=== PATIENT | male | born 1970 | race Caucasian/White ===

== ENCOUNTER 2018-08-14 02:36 | Observation (INO) | payer SELFPAY ==
[2018-08-14] MEDS ORDERED: Sodium Chloride 0.9% 1000 ML 1,000 ML IV STA (02:54)
[2018-08-14] MEDS ORDERED: Sodium Chloride 0.9% 1000 ML 1,000 ML ONE ×2 (02:57→03:47)
--- NOTE | 2018-08-14 02:59 | ERPHSYRPT ---
- History of Present Illness Time Seen by Provider: 08/14/18 02:50 Source: patient Exam Limitations: no limitations Patient Subjective Stated Complaint: pt is alert and oriented. pt comes in with c/o fever since about 2100 on 08/13/18. pt denies any other symptoms other than frequent urination. pt denies sore throat, ear ache, n/v/d, no abd pain, no chest pain, no cough, no nasal drainage. pt denies hesitancy, burning or pain with urination. pt skin is pwd. no apparent distress. Triage Nursing Assessment: see above Physician History: 48-year-old white male with history of high blood pressure arrives with complaint of having a fever which has been going on since August 13 He states he's been having a frequent urination he denies any other complaints he does state he's been outside a lot. And it has been hot patient denies chest pain shortness of breath abdominal pain nausea vomiting dysuria or hematuria he states he does not have sore throat. Past medical history includes high blood pressure. Past surgical history is negative. Social history patient states he chews tobacco Timing/Duration: day(s) (one day) Severity: moderate Modifying Factors: Improves With: acetaminophen Associated Symptoms: fever, other (frequent urination), No nausea, No vomiting, No abdominal pain, No shortness of breath, No heartburn, No diaphoresis, No cough, No chills, No chest pain, No headaches, No loss of appetite, No malaise, No rash, No syncope, No seizure, No weakness Allergies/Adverse Reactions: No Known Drug Allergies Allergy (Unverified 08/14/18 02:48) Home Medications: Lisinopril/Hydrochlorothiazide [Lisinopril-Hctz 20-12.5 mg Tab] 1 tablet PO DAILY 08/14/18 [History] Immunizations Up to Date: Yes - Review of Systems Constitutional: Fever, No Chills, No Fatigue, No Lethargy, No Malaise, No Night Sweats, No Weakness, No Weight Loss Eyes: No Symptoms Ears, Nose, & Throat: No Symptoms Respiratory: No Cough, No Dyspnea Cardiac: No Chest Pain, No Edema, No Syncope Abdominal/Gastrointestinal: No Abdominal Pain, No Nausea, No Vomiting, No Diarrhea Genitourinary Symptoms: Frequency, No Dysuria, No Hematuria, No Hesitancy, No Incontinence, No Urgency, No Urinary Retention, No Flank Pain, No Penile Discharge Musculoskeletal: No Back Pain, No Neck Pain Skin: No Rash Neurological: No Dizziness, No Focal Weakness, No Sensory Changes Psychological: No Symptoms Endocrine: No Symptoms All Other Systems: Reviewed and Negative - Past Medical History Pertinent Past Medical History: Yes Neurological History: No Pertinent History ENT History: No Pertinent History Cardiac History: Hypertension Respiratory History: No Pertinent History Endocrine Medical History: No Pertinent History Musculoskeletal History: No Pertinent History GI Medical History: No Pertinent History History: No Pertinent History Psycho-Social History: No Pertinent History - Past Surgical History Past Surgical History: No - Social History Smoking Status: Former smoker Drug Use: none - Nursing Vital Signs Nursing Vital Signs: Initial Vital Signs Temperature 99.2 F 08/14/18 02:42 Pulse Rate 120 H 08/14/18 02:42 Respiratory Rate 18 08/14/18 02:42 Blood Pressure 169/104 08/14/18 02:42 O2 Sat by Pulse Oximetry 95 08/14/18 02:42 Pain Scale Pain Intensity 0 - Physical Exam General Appearance: no apparent distress, alert Eye Exam: PERRL/EOMI, eyes nml inspection Ears, Nose, Throat Exam: TMs normal, pharyngeal erythema, No pharynx normal ( throat mild erythema), No moist mucous membranes, No dry mucous membranes, No TM abnormal (R), No TM abnormal (L) Neck Exam: normal inspection, non-tender, supple, full range of motion Respiratory Exam: normal breath sounds, lungs clear, No respiratory distress Cardiovascular Exam: regular rate/rhythm, normal heart sounds, normal peripheral pulses, capillary refill <2 sec Gastrointestinal/Abdomen Exam: soft, normal bowel sounds, No tenderness, No mass Back Exam: normal inspection, normal range of motion, No CVA tenderness, No vertebral tenderness Extremity Exam: normal inspection, normal range of motion, pelvis stable Neurologic Exam: alert, oriented x 3, cooperative, 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, normal mood/affect, nml cerebellar function, nml station & gait, sensation nml, No motor deficits Skin Exam: normal color, warm, dry, No rash Lymphatic Exam: No adenopathy SpO2 Interpretation: normal (95%) SpO2: 95 - Course Nursing assessment & vital signs reviewed: Yes EKG Interpreted by Me: RATE (112 bpm), Sinus Tach, NORMAL AXIS, Other (EKG: Sinus tachycardia, 112 beats per minute, normal axis, intraventricular conduction delay, no acute ST or T wave changes noted.) Ordered Tests: Active Orders 24 hr Category Date Time Status EKG-ER Only STAT Care 08/14/18 03:34 Active IV Insertion STAT Care 08/14/18 02:54 Active BLOOD CULTURE Stat Lab 08/14/18 03:05 Received CBC W DIFF Stat Lab 08/14/18 02:55 Completed CMP Stat Lab 08/14/18 02:55 Completed Lactic Acid Stat Lab 08/14/18 02:54 Completed UA W/RFX UR CULTURE Stat Lab 08/14/18 03:20 Completed Medication Summary Generic Name Dose Route Start Last Admin Trade Name Freq PRN Reason Stop Dose Admin Sodium Chloride 1,000 mls @ 999 mls/hr 08/14/18 02:54 08/14/18 02:59 Sodium Chloride 0.9% 1000 Ml IV 08/14/18 03:54 999 mls/hr .Q1H1M STA Administration Potassium Chloride 100 mls @ 50 mls/hr 08/14/18 03:45 Potassium Chloride 20 Meq In Water 100ml IV 08/14/18 07:44 Q2H JEOVANY Sodium Chloride 1,000 mls @ 100 mls/hr 08/14/18 03:45 Sodium Chloride 0.9% 1000 Ml IV 09/13/18 03:44 .Q10H JEOVANY Discontinued Medications Generic Name Dose Route Start Last Admin Trade Name Freq PRN Reason Stop Dose Admin Sodium Chloride Confirm 08/14/18 02:57 Sodium Chloride 0.9% 1000 Ml Administered 08/14/18 02:58 Dose 1,000 mls @ ud .ROUTE .STK-MED ONE Lab/Rad Data: Laboratory Result Diagrams 08/14/18 02:55 08/14/18 02:55 Laboratory Results 08/14/18 08/14/18 08/14/18 Range/Units 03:20 03:00 02:55 WBC (4.0-10.5) K/mm3 RBC (4.1-5.6) M/mm3 Hgb (12.5-18.0) gm/dl Hct (42-50) % MCV (78-100) fl MCH (26-32) pg MCHC (32-36) g/dl RDW (11.5-14.0) % Plt Count (150-450) K/mm3 MPV (6-9.5) fl Gran % (36.0-66.0) % Eos # (Auto) (0-0.5) Absolute Lymphs (auto) (1.0-4.6) Absolute Monos (auto) (0.0-1.3) Lymphocytes % (24.0-44.0) % Monocytes % (0.0-12.0) % Eosinophils % (0.00-5.0) % Basophils % (0.0-0.4) % Absolute Granulocytes (1.4-6.9) Basophils # (0-0.4) Sodium 138 (137-145) mmol/L Potassium 2.6 L* (3.5-5.1) mmol/L Chloride 100 (98-107) mmol/L Carbon Dioxide 24 (22-30) mmol/L Anion Gap 16.3 H (5-15) MEQ/L BUN 15 (9-20) mg/dL Creatinine 1.01 (0.66-1.25) mg/dL Estimated GFR > 60.0 ML/MIN Glucose 98 (74-106) mg/dL Lactic Acid (0.4-2.0) Calcium 9.3 (8.4-10.2) mg/dL Total Bilirubin 1.00 (0.2-1.3) mg/dL AST 26 (17-59) U/L ALT 25 (0-50) U/L Alkaline Phosphatase 80 (38-126) U/L Serum Total Protein 8.0 (6.3-8.2) g/dL Albumin 4.6 (3.5-5.0) g/dL Urine Color STRAW (YELLOW) Urine Appearance CLEAR (CLEAR) Urine pH 7.0 (5-6) Ur Specific [place] 1.009 (1.005-1.025) Urine Protein NEGATIVE (Negative) Urine Ketones NEGATIVE (NEGATIVE) Urine Blood SMALL (0-5) Lobo/ul Urine Nitrite NEGATIVE (NEGATIVE) Urine Bilirubin NEGATIVE (NEGATIVE) Urine Urobilinogen NEGATIVE (0-1) mg/dL Ur Leukocyte Esterase NEGATIVE (NEGATIVE) Urine WBC (Auto) NONE (0-5) /HPF Urine RBC (Auto) NONE (0-2) /HPF U Epithel Cells (Auto) NONE (FEW) /HPF Urine Bacteria (Auto) NONE (NEGATIVE) /HPF Urine Culture Reflexed NO (NO) Urine Glucose NEGATIVE (NEGATIVE) mg/dL Group A Strep Antibody NEGATIVE (NEGATIVE) 08/14/18 08/14/18 Range/Units 02:55 02:54 WBC 15.5 H (4.0-10.5) K/mm3 RBC 5.04 (4.1-5.6) M/mm3 Hgb 15.1 (12.5-18.0) gm/dl Hct 43.1 (42-50) % MCV 85.5 (78-100) fl MCH 30.0 (26-32) pg MCHC 35.0 (32-36) g/dl RDW 13.4 (11.5-14.0) % Plt Count 241 (150-450) K/mm3 MPV 10.4 H (6-9.5) fl Gran % 87.0 H (36.0-66.0) % Eos # (Auto) 0.10 (0-0.5) Absolute Lymphs (auto) 1.02 (1.0-4.6) Absolute Monos (auto) 0.83 (0.0-1.3) Lymphocytes % 6.6 L (24.0-44.0) % Monocytes % 5.3 (0.0-12.0) % Eosinophils % 0.6 (0.00-5.0) % Basophils % 0.5 (0.0-0.4) % Absolute Granulocytes 13.52 H (1.4-6.9) Basophils # 0.07 (0-0.4) Sodium (137-145) mmol/L Potassium (3.5-5.1) mmol/L Chloride (98-107) mmol/L Carbon Dioxide (22-30) mmol/L Anion Gap (5-15) MEQ/L BUN (9-20) mg/dL Creatinine (0.66-1.25) mg/dL Estimated GFR ML/MIN Glucose (74-106) mg/dL Lactic Acid 1.0 (0.4-2.0) Calcium (8.4-10.2) mg/dL Total Bilirubin (0.2-1.3) mg/dL AST (17-59) U/L ALT (0-50) U/L Alkaline Phosphatase (38-126) U/L Serum Total Protein (6.3-8.2) g/dL Albumin (3.5-5.0) g/dL Urine Color (YELLOW) Urine Appearance (CLEAR) Urine pH (5-6) Ur Specific [place] (1.005-1.025) Urine Protein (Negative) Urine Ketones (NEGATIVE) Urine Blood (0-5) Lobo/ul Urine Nitrite (NEGATIVE) Urine Bilirubin (NEGATIVE) Urine Urobilinogen (0-1) mg/dL Ur Leukocyte Esterase (NEGATIVE) Urine WBC (Auto) (0-5) /HPF Urine RBC (Auto) (0-2) /HPF U Epithel Cells (Auto) (FEW) /HPF Urine Bacteria (Auto) (NEGATIVE) /HPF Urine Culture Reflexed (NO) Urine Glucose (NEGATIVE) mg/dL Group A Strep Antibody (NEGATIVE) - Progress Progress: improved Progress Note: 08/14/18 03:51 48-year-old white male arrives with complaint that he has had a fever at home. He apparently had a fever as high as 103 at home he took some Tylenol he arrives and is afebrile with a temperature of 99.2. He states that he perhaps this has been too much time outside today he does state that he has been urinating a lot he is on lisinopril hydrochlorothiazide. Patient with stable vital signs blood pressure was somewhat elevated on arrival however this is improving patient with an EKG remarkable for sinus tachycardia 112 beats per minute normal axis interventricular conduction delay no acute ST or T wave changes are noted patient. He is noted to be hypokalemic with a potassium of 2.66 patient's strep test is negative patient's urinalysis is unremarkable patient's chemistry sodium 138 potassium 2.6 chloride 100 bicarbonate 24 BUN 15 creatinine 1.01 glucose is 98 anion gap was mildly elevated at 16.3 Patient was CBC White blood cell 15.5 hemoglobin 15.1 hematocrit 43.1 platelets 241 Impression hypokalemia. Fever at home. Plan blood cultures have been obtained. Patient has been given 1 L of normal saline he'll be changed to normal saline at 100 mL per hour and a K. rider will be begun. Case is discussed with Dr. Patel . - Departure Departure Disposition: Observation Clinical Impression: Hypokalemia, fever at home Condition: Fair Critical Care Time: No Referrals: KYLE CHURCHILL MD [Primary Care Provider] -
[2018-08-14 03:09] LABS: BASOPHIL % 0.5 % (0.0-0.4); Basophil (Absolute #) 0.07 (0-0.4); Eosinophil % 0.6 % (0.00-5.0); Granulocyte Absolute (ANC) 13.52 (1.4-6.9); Hematocrit 43.1 % (42-50); Hemoglobin 15.1 gm/dl (12.5-18.0); Lymphocyte (Absolute #) 1.02 (1.0-4.6); Lymphocytes % 6.6 % (24.0-44.0); Mean Cell Volume 85.5 fl (78-100); Mean Platelet Volume 10.4 fl (6-9.5); Monocyte (Absolute #) 0.83 (0.0-1.3); Monocytes % 5.3 % (0.0-12.0); Platelet Count 241 K/mm3 (150-450); Red Blood Count 5.04 M/mm3 (4.1-5.6); Red Cell Distribution Width 13.4 % (11.5-14.0); White Blood Count 15.5 K/mm3 (4.0-10.5)
[2018-08-14 03:22] LABS: ALBUMIN 4.6 g/dL (3.5-5.0); ALKALINE PHOSPHATASE 80 U/L (38-126); ANION GAP 16.3 MEQ/L (5-15); BLOOD UREA NITROGEN 15 mg/dL (9-20); CHLORIDE 100 mmol/L (98-107); Calcium 9.3 mg/dL (8.4-10.2); Carbon Dioxide 24 mmol/L (22-30); Creatinine 1 1.01 mg/dL (0.66-1.25); Glucose 98 mg/dL (74-106); SGOT/AST 26 U/L (17-59); SGPT/ALT 25 U/L (0-50); SODIUM 138 mmol/L (137-145)
[2018-08-14 03:26] LABS: Potassium 2.6 mmol/L (3.5-5.1)
[2018-08-14 03:32] LABS: Appearance CLEAR (CLEAR); Bilirubin NEGATIVE (NEGATIVE); Blood SMALL Ery/ul (0-5); Glucose NEGATIVE (NEGATIVE); Ketones NEGATIVE (NEGATIVE); Leukocyte Esterase NEGATIVE (NEGATIVE); Nitrite NEGATIVE (NEGATIVE); Protein,Urine Dip NEGATIVE (Negative); Specific Gravity 1.009 (1.005-1.025); Urobilinogen NEGATIVE mg/dL (0-1)
[2018-08-14] MEDS ORDERED: Sodium Chloride 0.9% 1000 ML 1,000 ML IV SCH ×2 (03:45→04:02)
[2018-08-14] MEDS ORDERED: POTASSIUM CHLORIDE 20 mEq IN WATER 100ML 100 ML IV ONE ×2 (03:47→05:29)
[2018-08-14] MEDS: POTASSIUM CHLORIDE 20 mEq IN WATER 100ML 100 ML IV SCH ×2 (03:50→05:38)
[2018-08-14] MEDS ORDERED: TYLENOL 325 MG PO PRN (04:02)
[2018-08-14 05:26] VITALS: O2SAT 93
[2018-08-14 07:02] VITALS: BP 142/84; PULSE 94
[2018-08-14 09:36] LABS: ANION GAP 12.3 MEQ/L (5-15); BLOOD UREA NITROGEN 12 mg/dL (9-20); CHLORIDE 103 mmol/L (98-107); Calcium 8.8 mg/dL (8.4-10.2); Carbon Dioxide 27 mmol/L (22-30); Creatinine 1 0.85 mg/dL (0.66-1.25); Glucose 101 mg/dL (74-106); Potassium 3.1 mmol/L (3.5-5.1); SODIUM 140 mmol/L (137-145)
--- NOTE | 2018-08-14 10:52 | PCM.DCORD ---
- Discharge Discharge Date: 08/14/18 Prescriptions: New Potassium Chloride [Klor-Con 8] 8 meq PO BID 7 Days #14 tablet.er Lisinopril 20 mg [Zestril 20 MG] 20 mg PO DAILY #30 tablet Discontinued Lisinopril/Hydrochlorothiazide [Lisinopril-Hctz 20-12.5 mg Tab] 1 tablet PO DAILY Instructions: Hypokalemia (DC) Forms: Discharge Instructions
--- NOTE | 2018-08-18 08:36 | SSS ---
DISCHARGE DIAGNOSES: 1) HEAT STROKE. 2) HYPOKALEMIA. HISTORY: The patient is a 48 year-old white male who began feeling bad this evening after being out in the sun all day sweating. He checked his temperature and was found to be 102F axillary. He presented himself to the emergency room where he was found to be profoundly hypokalemic with potassium 2.66. The patient has hypertension and takes lisinopril/hydrochlorothiazide 20/12.5 as the only medication. PAST MEDICAL/SURGICAL HISTORY: Other than hypertension he has no other significant medical history. ALLERGIES: NKDA. PHYSICAL EXAMINATION: The patient's vital signs on admission showed a temperature 99.2F, pulse 120, respiratory rate 18, blood pressure 169/104. O2 saturation 95%. HEENT: Normocephalic, atraumatic. Pupils equal round reactive to light. Extraocular movements intact. Oropharynx is pink and moist. NECK: Supple without lymphadenopathy, thyromegaly or JVD. CHEST: Clear to auscultation. HEART: Regular rate and rhythm without murmurs, rubs or gallops. ABDOMEN: Soft. No palpable masses. EXTREMITIES: Without cyanosis, clubbing or edema. NEUROLOGIC: The patient is alert and oriented x3. LAB DATA AND TESTS: Showed lactic acid of 1.0. White blood cell count 15,500, hemoglobin 15.1, PLT count 241,000. His electrolytes showed sodium 138, potassium 2.6, chloride 100, bicarb 24. Liver enzymes are normal. UA showed a specific gravity of 1.009 and was otherwise normal. Group A Strep was negative. The patient's EKG showed sinus tachycardia but otherwise was normal. HOSPITAL COURSE: The patient admitted to the [facility] where he was given IV fluids and IV potassium. He is now feeling fine and has eaten a normal breakfast and felt to be ready for discharge home. We will check his potassium prior to discharge due to time and how much potassium he is sent home with. He is instructed to stop taking his lisinopril/hydrochlorothiazide and will give him lisinopril 20 mg daily and follow him up in the office in the next week to see if his potassium is entirely back to normal and to monitor his blood pressure. Possibly add Maxzide instead of the hydrochlorothiazide only.
== END 2018-08-14 11:44 | disposition home or self-care (01) ==
LOC: ED 02:36 → MED SURG 04:03
PROVIDERS: ADMIT Family Medicine; ATTEND Family Medicine
DX: T67.0XXA Heatstroke and sunstroke, initial encounter (principal); E87.6 Hypokalemia; I10 Essential (primary) hypertension; Z79.899 Other long term (current) drug therapy
CPT/HCPCS: 36000; 36415; 80048; 80053; 81001; 83605; 85025; 87040; 87651; 93005; 93041; 93268; 96360; 96361; 96365; 99285; G0378; J3480

== ENCOUNTER 2018-11-22 19:20 | Emergency (ER) | payer SELFPAY ==
--- NOTE | 2018-11-22 19:37 | ERPHSYRPT ---
- History of Present Illness Time Seen by Provider: 11/22/18 19:30 Source: patient Exam Limitations: no limitations Physician History: 48 years old male with history of hypertension on lisinopril as into the ER for blood pressure 180 systolic associated with mild frontal headache. Patient showed his blood pressure usually stays around 140-150.he has been taking lisinopril regularly. Patient was taken lisinopril/HCTZ but has been taken off of HCTZ because of hypokalemia recently and since then his blood pressure is not well controlled. Patient denies any chest pain palpitations or shortness of breath.denies any leg swelling. No history of coronary heart disease next congestive heart failure. He denies any blurry vision, numbness tingling or weakness. Denies any abdominal pain nausea or vomiting. Patient about having migraines with headaches off and on almost every day of mild to moderate intensity which usually goes away by taking ibuprofen. Headache is similar to previous episodes and does not think this is the worst headache of his life. Timing/Duration: today Severity: moderate Modifying Factors: Improves With: nothing Associated Symptoms: headaches Allergies/Adverse Reactions: No Known Drug Allergies Allergy (Unverified 08/14/18 02:48) Home Medications: Lisinopril 20 mg [Zestril 20 MG] 20 mg PO HS 11/22/18 [History] - Review of Systems Constitutional: No Symptoms Eyes: No Symptoms Ears, Nose, & Throat: No Symptoms Respiratory: No Symptoms Cardiac: No Symptoms Abdominal/Gastrointestinal: No Symptoms Musculoskeletal: No Symptoms Neurological: Headache, No Dizziness, No Focal Weakness, No Parasthesia, No Seizure, No Sensory Changes, No Speech Changes Psychological: No Symptoms Endocrine: No Symptoms Hematologic/Lymphatic: No Symptoms Immunological/Allergic: No Symptoms - Past Medical History Pertinent Past Medical History: Yes Neurological History: No Pertinent History ENT History: No Pertinent History Cardiac History: Hypertension Respiratory History: No Pertinent History Endocrine Medical History: No Pertinent History Musculoskeletal History: No Pertinent History GI Medical History: No Pertinent History History: No Pertinent History Psycho-Social History: No Pertinent History Male Reproductive Disorders: No Pertinent History - Past Surgical History Past Surgical History: No Neuro Surgical History: No Pertinent History Cardiac: No Pertinent History Respiratory: No Pertinent History Gastrointestinal: No Pertinent History Genitourinary: No Pertinent History Musculoskeletal: No Pertinent History Male Surgical History: No Pertinent History - Social History Smoking Status: Former smoker Exposure to second hand smoke: No Drug Use: none - Nursing Vital Signs Nursing Vital Signs: Initial Vital Signs Temperature 98.0 F 11/22/18 19:30 Pulse Rate 95 H 11/22/18 19:30 Respiratory Rate 18 11/22/18 19:30 Blood Pressure 182/110 11/22/18 19:30 O2 Sat by Pulse Oximetry 97 11/22/18 19:30 Pain Scale Pain Intensity 0 - Physical Exam General Appearance: no apparent distress Eye Exam: PERRL/EOMI, eyes nml inspection Ears, Nose, Throat Exam: normal ENT inspection, TMs normal, pharynx normal Neck Exam: normal inspection, non-tender, supple, full range of motion, No meningismus Respiratory Exam: normal breath sounds, chest tenderness, lungs clear, No respiratory distress Cardiovascular Exam: regular rate/rhythm, normal heart sounds, normal peripheral pulses Gastrointestinal/Abdomen Exam: soft, normal bowel sounds, No tenderness, No distention Back Exam: normal inspection, normal range of motion, No CVA tenderness Extremity Exam: normal inspection, normal range of motion, pelvis stable Neurologic Exam: alert, oriented x 3, cooperative, 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, normal mood/affect, nml cerebellar function, nml station & gait, sensation nml Skin Exam: normal color, warm, dry SpO2 Interpretation: normal O2 Delivery: Room Air - Course Nursing assessment & vital signs reviewed: Yes EKG Interpreted by Me: RATE (70), Sinus Rhythm, NORMAL AXIS, Non-specific ST Changes Ordered Tests: Active Orders 24 hr Category Date Time Status EKG-ER Only STAT Care 11/22/18 20:00 Active IV Insertion STAT Care 11/22/18 19:48 Active CHEST 2 VIEWS (PA AND LAT) Stat Exams 11/22/18 20:30 Taken CBC W DIFF Stat Lab 11/22/18 19:48 Completed CMP Stat Lab 11/22/18 19:48 Completed TROPONIN Q3H Lab 11/22/18 20:00 Completed TROPONIN Q3H Lab 11/22/18 23:00 Ordered Urine Triage Profile Stat Lab 11/22/18 19:53 Completed Medication Summary Generic Name Dose Route Start Last Admin Trade Name Freq PRN Reason Stop Dose Admin Aspirin 325 mg 11/22/18 22:00 11/22/18 20:08 Ecotrin 325 Mg PO 12/22/18 21:59 325 mg HS JEOVANY Administration Discontinued Medications Generic Name Dose Route Start Last Admin Trade Name Shade PRN Reason Stop Dose Admin Acetaminophen 975 mg 11/22/18 19:48 11/22/18 20:02 Tylenol 325 Mg PO 11/22/18 19:49 975 mg STAT ONE Administration Acetaminophen Confirm 11/22/18 19:57 Tylenol 325 Mg Administered 11/22/18 19:58 Dose 975 mg .ROUTE .STK-MED ONE Clonidine 0.2 mg 11/22/18 19:51 11/22/18 20:02 Catapres 0.1 Mg PO 11/22/18 19:52 0.2 mg STAT ONE Administration Clonidine Confirm 11/22/18 19:57 Catapres 0.1 Mg Administered 11/22/18 19:58 Dose 0.1 mg .ROUTE .STK-MED ONE Clonidine Confirm 11/22/18 20:01 Catapres 0.1 Mg Administered 11/22/18 20:02 Dose 0.1 mg .ROUTE .STK-MED ONE Ketorolac Tromethamine 30 mg 11/22/18 19:48 11/22/18 20:04 Toradol 30 Mg Injection IV 11/22/18 19:49 30 mg STAT ONE Administration Ketorolac Tromethamine Confirm 11/22/18 19:57 Toradol 30 Mg Injection Administered 11/22/18 19:58 Dose 30 mg .ROUTE .STK-MED ONE Lab/Rad Data: Laboratory Result Diagrams 11/22/18 19:48 11/22/18 19:48 Laboratory Results 11/22/18 11/22/18 11/22/18 Range/Units 20:00 19:53 19:48 WBC (4.0-10.5) K/mm3 RBC (4.1-5.6) M/mm3 Hgb (12.5-18.0) gm/dl Hct (42-50) % MCV (78-100) fl MCH (26-32) pg MCHC (32-36) g/dl RDW (11.5-14.0) % Plt Count (150-450) K/mm3 MPV (6-9.5) fl Gran % (36.0-66.0) % Eos # (Auto) (0-0.5) Absolute Lymphs (auto) (1.0-4.6) Absolute Monos (auto) (0.0-1.3) Lymphocytes % (24.0-44.0) % Monocytes % (0.0-12.0) % Eosinophils % (0.00-5.0) % Basophils % (0.0-0.4) % Absolute Granulocytes (1.4-6.9) Basophils # (0-0.4) Sodium 147 H (137-145) mmol/L Potassium 3.3 L (3.5-5.1) mmol/L Chloride 105 (98-107) mmol/L Carbon Dioxide 28 (22-30) mmol/L Anion Gap 17.2 H (5-15) MEQ/L BUN 19 (9-20) mg/dL Creatinine 1.16 (0.66-1.25) mg/dL Estimated GFR > 60.0 ML/MIN Glucose 87 (74-106) mg/dL Calcium 9.5 (8.4-10.2) mg/dL Total Bilirubin 1.10 (0.2-1.3) mg/dL AST 53 (17-59) U/L ALT 31 (0-50) U/L Alkaline Phosphatase 64 (38-126) U/L Troponin I < 0.012 (0.000-0.034) ng/mL Serum Total Protein 8.3 H (6.3-8.2) g/dL Albumin 4.7 (3.5-5.0) g/dL Urine Opiates Level NEGATIVE (NEGATIVE) Ur Methadone NEGATIVE (NEGATIVE) Urine Barbiturates NEGATIVE (NEGATIVE) Ur Phencyclidine (PCP) NEGATIVE (NEGATIVE) Urine Amphetamine NEGATIVE (NEGATIVE) U Benzodiazepine Level NEGATIVE (NEGATIVE) Urine Cocaine NEGATIVE (NEGATIVE) Urine Marijuana (THC) NEGATIVE (NEGATIVE) 11/22/18 Range/Units 19:48 WBC 8.4 (4.0-10.5) K/mm3 RBC 4.75 (4.1-5.6) M/mm3 Hgb 14.2 (12.5-18.0) gm/dl Hct 41.8 L (42-50) % MCV 88.0 (78-100) fl MCH 29.9 (26-32) pg MCHC 34.0 (32-36) g/dl RDW 13.9 (11.5-14.0) % Plt Count 243 (150-450) K/mm3 MPV 10.8 H (6-9.5) fl Gran % 64.2 (36.0-66.0) % Eos # (Auto) 0.14 (0-0.5) Absolute Lymphs (auto) 2.00 (1.0-4.6) Absolute Monos (auto) 0.80 (0.0-1.3) Lymphocytes % 23.8 L (24.0-44.0) % Monocytes % 9.5 (0.0-12.0) % Eosinophils % 1.7 (0.00-5.0) % Basophils % 0.8 (0.0-0.4) % Absolute Granulocytes 5.41 (1.4-6.9) Basophils # 0.07 (0-0.4) Sodium (137-145) mmol/L Potassium (3.5-5.1) mmol/L Chloride (98-107) mmol/L Carbon Dioxide (22-30) mmol/L Anion Gap (5-15) MEQ/L BUN (9-20) mg/dL Creatinine (0.66-1.25) mg/dL Estimated GFR ML/MIN Glucose (74-106) mg/dL Calcium (8.4-10.2) mg/dL Total Bilirubin (0.2-1.3) mg/dL AST (17-59) U/L ALT (0-50) U/L Alkaline Phosphatase (38-126) U/L Troponin I (0.000-0.034) ng/mL Serum Total Protein (6.3-8.2) g/dL Albumin (3.5-5.0) g/dL Urine Opiates Level (NEGATIVE) Ur Methadone (NEGATIVE) Urine Barbiturates (NEGATIVE) Ur Phencyclidine (PCP) (NEGATIVE) Urine Amphetamine (NEGATIVE) U Benzodiazepine Level (NEGATIVE) Urine Cocaine (NEGATIVE) Urine Marijuana (THC) (NEGATIVE) - Progress Progress: improved, re-examined Progress Note: 48 years old is evaluated for uncontrolled hypertension. He also had a frontal headache which seemed more of a migraine. Nonfocal neuro exam otherwise. EKG showed normal sinus rhythm, negative troponin. No acute finding on chest x- ray. He is given oral clonidine, on reevaluation blood pressure is improved in 150s,headache also improved with Tylenol/ibuprofen. Headaches similar to previous episodes, do not think he needs any imaging. I believe patient needs increase in dose of lisinopril. I have advised him to keep the blood pressure log and followup with primary care. I would also give him clonidine 0.1 mg to take as needed for blood pressure greater than 160. The signs and worsening needed return to ER which was understanding. Stable for discharge. 11/22/18 21:25 Counseled pt/family regarding: lab results, diagnosis, need for follow-up, rad results - Departure Departure Disposition: Home Clinical Impression: Uncontrolled hypertension Migraine Qualifiers: Migraine type: other Status migrainosus presence: without status migrainosus Intractability: not intractable Qualified Code(s): G43.809 - Other migraine, not intractable, without status migrainosus Condition: Good Critical Care Time: No Referrals: KYLE CHURCHILL MD [Primary Care Provider] - Follow Up with PCP/3 days () Additional Instructions: keep daily blood pressure log & follow up with primary care for reevaluation. Return to ER for uncontrolled hypertension persistently more than 160. She was clonidine as needed for blood pressure 160,chest pain, shortness of breath, headache, blurry vision et cetera.low-salt diet Prescriptions: Clonidine HCl 0.1 mg [Catapres 0.1 MG] 0.1 mg PO UD #14 tablet
[2018-11-22] MEDS ORDERED: TYLENOL 325 MG PO ONE (19:48)
[2018-11-22] MEDS ORDERED: TORAdol 30 mg Injection IV ONE (19:48)
[2018-11-22] MEDS ORDERED: Catapres 0.1 MG PO ONE (19:51)
[2018-11-22] MEDS ORDERED: TYLENOL 325 MG ONE (19:57)
[2018-11-22] MEDS ORDERED: Catapres 0.1 MG ONE ×2 (19:57→20:01)
[2018-11-22] MEDS ORDERED: TORAdol 30 mg Injection ONE (19:57)
[2018-11-22] MEDS ORDERED: Ecotrin 325 MG ONE (20:02)
[2018-11-22 20:35] LABS: ALBUMIN 4.7 g/dL (3.5-5.0); ALKALINE PHOSPHATASE 64 U/L (38-126); ANION GAP 17.2 MEQ/L (5-15); BLOOD UREA NITROGEN 19 mg/dL (9-20); CHLORIDE 105 mmol/L (98-107); Calcium 9.5 mg/dL (8.4-10.2); Carbon Dioxide 28 mmol/L (22-30); Creatinine 1 1.16 mg/dL (0.66-1.25); Glucose 87 mg/dL (74-106); Potassium 3.3 mmol/L (3.5-5.1); SGOT/AST 53 U/L (17-59); SGPT/ALT 31 U/L (0-50); SODIUM 147 mmol/L (137-145); Total Protein 8.3 g/dL (6.3-8.2)
[2018-11-22 20:43] VITALS: O2SAT 97
[2018-11-22 20:58] LABS: Absolute Neutrophil Ct (ANC) 5.41 (1.4-6.9); BASOPHIL % 0.8 % (0.0-0.4); Basophil (Absolute #) 0.07 (0-0.4); Eosinophil % 1.7 % (0.00-5.0); Eosinophil (Absolute #) 0.14 (0-0.5); Hematocrit 41.8 % (42-50); Hemoglobin 14.2 gm/dl (12.5-18.0); Lymphocytes % 23.8 % (24.0-44.0); Mean Corpuscular Hemoglobin 29.9 pg (26-32); Mean Platelet Volume 10.8 fl (6-9.5); Monocytes % 9.5 % (0.0-12.0); Neutrophil % 64.2 % (36.0-66.0); Platelet Count 243 K/mm3 (150-450); Red Blood Count 4.75 M/mm3 (4.1-5.6); Red Cell Distribution Width 13.9 % (11.5-14.0); White Blood Count 8.4 K/mm3 (4.0-10.5)
[2018-11-22 21:11] LABS: Amphetamine,Urine NEGATIVE (NEGATIVE); Barbiturate,Urine NEGATIVE (NEGATIVE); Benzodiazepine,Urine NEGATIVE (NEGATIVE); Cocaine,Urine NEGATIVE (NEGATIVE); Methadone,Urine NEGATIVE (NEGATIVE); Opiate,Urine NEGATIVE (NEGATIVE); PCP,Urine NEGATIVE (NEGATIVE); THC,Urine NEGATIVE (NEGATIVE)
[2018-11-22 21:28] VITALS: BP 159/95; PULSE 80
[2018-11-22] MEDS ORDERED: Ecotrin 325 MG PO SCH (22:00)
--- NOTE | 2018-11-22 22:16 | XRAY ---
Indication: Uncontrolled hypertension. Comparison: None PA/lateral chest clear. Heart and mediastinal structures within normal limits. Bony thorax intact. Impression: Nonacute chest.
== END 2018-11-22 21:33 | disposition home or self-care (01) ==
LOC: ED 19:20
DX: I10 Essential (primary) hypertension (principal); G43.809 Other migraine, not intractable, without status migrainosus; Z79.899 Other long term (current) drug therapy; Z87.891 Personal history of nicotine dependence
CPT/HCPCS: 36000; 36415; 71046; 80053; 80307; 84484; 85025; 93005; 96374; 99284; J1885; A9270-GY

== ENCOUNTER 2018-12-05 20:30 | Emergency (ER) | payer OTHER ==
[2018-12-05 21:33] VITALS: O2SAT 99
[2018-12-05] MEDS ORDERED: Catapres 0.1 MG PO ONE (21:48)
--- NOTE | 2018-12-05 21:53 | ERPHSYRPT ---
- History of Present Illness Time Seen by Provider: 12/05/18 21:51 Source: patient Exam Limitations: no limitations Patient Subjective Stated Complaint: pt states he had a headache tonight at home so he checked his bp. went to [facility] to check his bp, it was 183/116. pt came to er. Triage Nursing Assessment: pt alert and oriented, states he has a headache. bp at triage 163/97. hr 61 bpm. Physician History: pt states he had a headache tonight at home so he checked his bp. went to [facility] to check his bp, it was 183/116. pt came to er. Quality: aching (headache) Modifying Factors: Improves With: nothing Nitro Today/Relief: no nitro taken today Aspirin Treatment Today: no aspirin today Associated Symptoms: headaches Allergies/Adverse Reactions: No Known Drug Allergies Allergy (Verified 12/05/18 21:33) Home Medications: Lisinopril 20 mg [Zestril 20 MG] 20 mg PO HS 11/22/18 [History] Carvedilol 3.125 mg [Coreg 3.125 MG] 3.125 mg PO BID 12/05/18 [History] Hx Tetanus, Diphtheria Vaccination/Date Given: Yes Hx Influenza Vaccination/Date Given: No Hx Pneumococcal Vaccination/Date Given: No - Review of Systems Constitutional: No Fever, No Chills Eyes: No Symptoms Ears, Nose, & Throat: No Symptoms Respiratory: No Cough, No Dyspnea Cardiac: No Chest Pain, No Edema, No Syncope Abdominal/Gastrointestinal: No Abdominal Pain, No Nausea, No Vomiting, No Diarrhea Genitourinary Symptoms: No Dysuria Musculoskeletal: No Back Pain, No Neck Pain Skin: No Rash Neurological: Headache, No Dizziness, No Focal Weakness, No Sensory Changes Psychological: No Symptoms Endocrine: No Symptoms All Other Systems: Reviewed and Negative - Past Medical History Pertinent Past Medical History: Yes Neurological History: No Pertinent History ENT History: No Pertinent History Cardiac History: Hypertension Respiratory History: No Pertinent History Endocrine Medical History: No Pertinent History Musculoskeletal History: No Pertinent History GI Medical History: No Pertinent History History: No Pertinent History Psycho-Social History: No Pertinent History Male Reproductive Disorders: No Pertinent History Other Medical History: low potassium 2-3 mos ago - Past Surgical History Past Surgical History: No Neuro Surgical History: No Pertinent History Cardiac: No Pertinent History Respiratory: No Pertinent History Gastrointestinal: No Pertinent History Genitourinary: No Pertinent History Musculoskeletal: No Pertinent History Male Surgical History: Vasectomy Other Surgical History: vasectomy - Social History Smoking Status: Former smoker Exposure to second hand smoke: No Drug Use: none Patient Lives Alone: No - Nursing Vital Signs Nursing Vital Signs: Initial Vital Signs Temperature 97.7 F 12/05/18 21:24 Pulse Rate 63 12/05/18 21:24 Respiratory Rate 16 12/05/18 21:24 Blood Pressure 163/97 12/05/18 21:24 O2 Sat by Pulse Oximetry 99 12/05/18 21:24 Pain Scale Pain Intensity 5 - Physical Exam General Appearance: no apparent distress, alert Eye Exam: PERRL/EOMI, eyes nml inspection Ears, Nose, Throat Exam: normal ENT inspection, moist mucous membranes Neck Exam: normal inspection, non-tender, supple Respiratory Exam: normal breath sounds, lungs clear, No respiratory distress Cardiovascular Exam: regular rate/rhythm, normal heart sounds, No edema Gastrointestinal/Abdomen Exam: soft, No tenderness, No mass Back Exam: normal inspection, No CVA tenderness, No vertebral tenderness Extremity Exam: normal inspection, normal range of motion Neurologic Exam: alert, oriented x 3, cooperative, normal mood/affect, nml cerebellar function, sensation nml, No motor deficits Skin Exam: normal color, warm, dry Lymphatic Exam: No adenopathy SpO2: 99 - Course Nursing assessment & vital signs reviewed: Yes EKG Interpreted by Me: Sinus Rhythm Ordered Tests: Active Orders 24 hr Category Date Time Status EKG-ER Only STAT Care 12/05/18 21:48 Active CBC W DIFF Stat Lab 12/05/18 22:10 Completed CMP Stat Lab 12/05/18 22:10 Completed TROPONIN Q3H Lab 12/05/18 22:10 Completed TROPONIN Q3H Lab 12/06/18 01:00 Ordered TROPONIN Q3H Lab 12/06/18 04:00 Ordered TROPONIN Q3H Lab 12/06/18 07:00 Ordered TROPONIN Q3H Lab 12/06/18 10:00 Ordered Medication Summary Generic Name Dose Route Start Last Admin Trade Name Freq PRN Reason Stop Dose Admin Potassium Bicarbonate 50 meq 12/05/18 22:48 K-Lyte 25 Meq PO 12/05/18 22:49 STAT ONE Discontinued Medications Generic Name Dose Route Start Last Admin Trade Name Freq PRN Reason Stop Dose Admin Clonidine 0.1 mg 12/05/18 21:48 12/05/18 21:55 Catapres 0.1 Mg PO 12/05/18 21:49 0.1 mg STAT ONE Administration Clonidine Confirm 12/05/18 21:54 Catapres 0.1 Mg Administered 12/05/18 21:55 Dose 0.1 mg .ROUTE .STK-MED ONE Lab/Rad Data: Laboratory Result Diagrams 12/05/18 22:10 12/05/18 22:10 Laboratory Results 12/05/18 12/05/18 12/05/18 Range/Units 22:10 22:10 22:10 WBC 6.5 (4.0-10.5) K/mm3 RBC 4.79 (4.1-5.6) M/mm3 Hgb 14.7 (12.5-18.0) gm/dl Hct 42.0 (42-50) % MCV 87.7 (78-100) fl MCH 30.7 (26-32) pg MCHC 35.0 (32-36) g/dl RDW 13.6 (11.5-14.0) % Plt Count 222 (150-450) K/mm3 MPV 10.5 H (6-9.5) fl Gran % 54.6 (36.0-66.0) % Eos # (Auto) 0.23 (0-0.5) Absolute Lymphs (auto) 2.05 (1.0-4.6) Absolute Monos (auto) 0.61 (0.0-1.3) Lymphocytes % 31.4 (24.0-44.0) % Monocytes % 9.3 (0.0-12.0) % Eosinophils % 3.5 (0.00-5.0) % Basophils % 1.2 (0.0-0.4) % Absolute Granulocytes 3.56 (1.4-6.9) Basophils # 0.08 (0-0.4) Sodium 145 (137-145) mmol/L Potassium 3.1 L (3.5-5.1) mmol/L Chloride 104 (98-107) mmol/L Carbon Dioxide 29 (22-30) mmol/L Anion Gap 14.9 (5-15) MEQ/L BUN 13 (9-20) mg/dL Creatinine 1.04 (0.66-1.25) mg/dL Estimated GFR > 60.0 ML/MIN Glucose 95 (74-106) mg/dL Calcium 9.0 (8.4-10.2) mg/dL Total Bilirubin 0.70 (0.2-1.3) mg/dL AST 25 (17-59) U/L ALT 21 (0-50) U/L Alkaline Phosphatase 69 (38-126) U/L Troponin I < 0.012 (0.000-0.034) ng/mL Serum Total Protein 7.6 (6.3-8.2) g/dL Albumin 4.5 (3.5-5.0) g/dL - Departure Departure Disposition: Home Clinical Impression: Hypokalemia, Uncontrolled hypertension Condition: Stable Critical Care Time: No Referrals: KYLE CHURCHILL MD [Primary Care Provider] - Instructions: Malignant Hypertension (DC), Hypokalemia (DC) Additional Instructions: Discharge/Care Plan SOPHIE MCCARTY JR was seen on 12/05/18 in the Emergency Room. The patient was counseled regarding Diagnosis,Lab results, Imaging studies, need for follow up and when to return to the Emergency Room. Prescriptions given: Discharge Note I have spoken with the patient and/or caregivers. I have explained the patient' s condition, diagnosis and treatment plan based on the information available to me at this time. I have answered the patient's and/or caregiver's questions and addressed any concerns. The patient and/or caregivers have as good understanding of the patient's diagnosis, condition and treatment plan as can be expected at this point. The vital signs have been stable. The patient's condition is stable and appropriate for discharge from the emergency department. The patient will pursue further outpatient evaluation with the primary care physician or other designated or consulting physician as outlined in the discharge instructions. The patient and/or caregivers are agreeable to this plan of care and follow-up instructions have been explained in detail. The patient and/or caregivers have received these instruction. The patient/and or caregivers are aware that any significant change in condition or worsening of symptoms should prompt an immediate return to this or the closest emergency department or call 911. SOPHIE MCCARTY JR was seen on 12/05/18 n the Emergency Room. At that time you were treated for an emergent condition, during your visit Laboratory, Radiology and/or other procedures may have been ordered. It is very important that you follow-up with your Primary Care Physician KYLE CHURCHILL within the next 24-48 hours to review your Emergency Room visit and the final results of testing that was ordered. Some test results such as Urine Cultures, Blood Cultures, and other cultures if ordered will not be finalized for 24-48 hours. If you do not have a Primary Care Provider please call the medical records department at [phone] ext [phone] to obtain a copy of your results or you may sign into our patient portal to obtain these results by visiting us @ [email or web address] and completing the following steps: 1. Click on the Patient Portal link 2. Click the Patient Self Enrollment Link to complete the enrollment form and entering your 3. Once the enrollment form is completed you will receive an email with a temporary ID and password at the email address you provided. 4. Next choose a user name and password. Your user name must be at least 4 characters long and your password must be at least 4 characters long. 5. Choose a security question from the list and provide your answer to the question. If you already have signed into the Health Portal you may access your Health Care Information 03/09 by the following steps: 1. Login to our website @ [email or web address] 2. Enter your original user name and password. FAQS The [facility] Health Portal is an online tool that contains your Lab Results, Radiology Reports, Visit History, Discharge Instructions and Health Summary Lab and Radiology Results will not be available for 72 hours on the portal. The Portal is a secure site, passwords are encryted and URLs are re-written so they cannot be copied and pasted. You and authorized family members are the only ones who can access your Portal. Also there is a timeout feature that protects your information if you leave the Portal page open. If you have technical difficulty please use the Contact Us link on the page this will allow you to submit any questions you have regarding the Portal or you may contact the Medical Record Department at [phone]. Prescriptions: Potassium Chloride [K-Dur] 10 meq PO DAILY #30 [email or web address]
[2018-12-05] MEDS ORDERED: Catapres 0.1 MG ONE (21:54)
[2018-12-05 22:13] LABS: Absolute Neutrophil Ct (ANC) 3.56 (1.4-6.9); BASOPHIL % 1.2 % (0.0-0.4); Basophil (Absolute #) 0.08 (0-0.4); Eosinophil % 3.5 % (0.00-5.0); Eosinophil (Absolute #) 0.23 (0-0.5); Hemoglobin 14.7 gm/dl (12.5-18.0); Lymphocyte (Absolute #) 2.05 (1.0-4.6); Lymphocytes % 31.4 % (24.0-44.0); Mean Cell Volume 87.7 fl (78-100); Mean Corpuscular Hemoglobin 30.7 pg (26-32); Mean Platelet Volume 10.5 fl (6-9.5); Monocyte (Absolute #) 0.61 (0.0-1.3); Monocytes % 9.3 % (0.0-12.0); Neutrophil % 54.6 % (36.0-66.0); Platelet Count 222 K/mm3 (150-450); Red Blood Count 4.79 M/mm3 (4.1-5.6); Red Cell Distribution Width 13.6 % (11.5-14.0); White Blood Count 6.5 K/mm3 (4.0-10.5)
[2018-12-05 22:28] LABS: ALBUMIN 4.5 g/dL (3.5-5.0); ALKALINE PHOSPHATASE 69 U/L (38-126); ANION GAP 14.9 MEQ/L (5-15); BLOOD UREA NITROGEN 13 mg/dL (9-20); CHLORIDE 104 mmol/L (98-107); Carbon Dioxide 29 mmol/L (22-30); Creatinine 1 1.04 mg/dL (0.66-1.25); Glucose 95 mg/dL (74-106); Potassium 3.1 mmol/L (3.5-5.1); SGOT/AST 25 U/L (17-59); SGPT/ALT 21 U/L (0-50); SODIUM 145 mmol/L (137-145); Total Protein 7.6 g/dL (6.3-8.2)
[2018-12-05] MEDS ORDERED: K-LYTE 25 MEQ PO ONE (22:48)
[2018-12-05] MEDS ORDERED: K-LYTE 25 MEQ ONE (22:50)
[2018-12-05 23:06] VITALS: BP 134/91; PULSE 61
== END 2018-12-05 23:20 | disposition home or self-care (01) ==
LOC: ED 20:30
DX: E87.6 Hypokalemia (principal); I10 Essential (primary) hypertension
CPT/HCPCS: 36415; 80053; 84484; 85025; 93005; 99284; A9270-GY

== ENCOUNTER 2020-09-02 16:33 | Emergency (ER) | payer OTHER ==
--- NOTE | 2020-09-02 16:42 | ERPHSYRPT ---
- History of Present Illness Time Seen by Provider: 09/02/20 16:42 Source: patient Exam Limitations: no limitations Physician History: This is a 50-year-old white male who has hypertension and found to have hypokalemia today on current labs just prior to arrival to the emergency department. Patient was told to come to the emergency department for intravenous potassium and oral supplementation. Patient is asymptomatic. Patient is taking both Coreg and lisinopril for his blood pressure. He has no chest pain. He is not short of breath. He has had no nausea vomiting or diarrhea. Timing/Duration: today Modifying Factors: Improves With: nothing Associated Symptoms: denies symptoms Allergies/Adverse Reactions: No Known Drug Allergies Allergy (Verified 12/05/18 21:33) Home Medications: Lisinopril 20 mg [Zestril 20 MG] 20 mg PO HS 11/22/18 [History] Carvedilol 3.125 mg [Coreg 3.125 MG] 3.125 mg PO BID 12/05/18 [History] Hx Tetanus, Diphtheria Vaccination/Date Given: Yes Hx Influenza Vaccination/Date Given: No Hx Pneumococcal Vaccination/Date Given: No Travel Risk - International Travel Have you traveled outside of the country in past 3 weeks: No - Coronavirus Screening Are you exhibiting any of the following symptoms?: No Close contact with a COVID-19 positive Pt in past 14-21 Days: No - Review of Systems Constitutional: No Symptoms Eyes: No Symptoms Ears, Nose, & Throat: No Symptoms Respiratory: No Symptoms Cardiac: No Symptoms Abdominal/Gastrointestinal: No Symptoms Genitourinary Symptoms: No Symptoms Musculoskeletal: No Symptoms Skin: No Symptoms Neurological: No Symptoms Psychological: No Symptoms Endocrine: No Symptoms Hematologic/Lymphatic: No Symptoms Immunological/Allergic: No Symptoms All Other Systems: Reviewed and Negative - Past Medical History Pertinent Past Medical History: Yes Neurological History: No Pertinent History ENT History: No Pertinent History Cardiac History: Hypertension Respiratory History: No Pertinent History Endocrine Medical History: No Pertinent History Musculoskeletal History: No Pertinent History GI Medical History: No Pertinent History History: No Pertinent History Psycho-Social History: No Pertinent History Male Reproductive Disorders: No Pertinent History Other Medical History: low potassium 2-3 mos ago - Past Surgical History Past Surgical History: No Neuro Surgical History: No Pertinent History Cardiac: No Pertinent History Respiratory: No Pertinent History Gastrointestinal: No Pertinent History Genitourinary: No Pertinent History Musculoskeletal: No Pertinent History Male Surgical History: Vasectomy Other Surgical History: vasectomy - Social History Smoking Status: Former smoker Exposure to second hand smoke: No Drug Use: none Patient Lives Alone: No - Nursing Vital Signs Nursing Vital Signs: Initial Vital Signs Temperature 98.1 F 09/02/20 16:47 Pulse Rate 91 H 09/02/20 16:47 Respiratory Rate 23 09/02/20 16:47 Blood Pressure 139/101 09/02/20 16:47 O2 Sat by Pulse Oximetry 97 09/02/20 16:47 Pain Scale Pain Intensity 0 - Physical Exam General Appearance: no apparent distress, alert Eye Exam: PERRL/EOMI, eyes nml inspection Ears, Nose, Throat Exam: normal ENT inspection, moist mucous membranes Neck Exam: normal inspection, non-tender, supple, full range of motion Respiratory Exam: normal breath sounds, lungs clear, airway intact, No chest tenderness, No respiratory distress Cardiovascular Exam: regular rate/rhythm, normal heart sounds, normal peripheral pulses Gastrointestinal/Abdomen Exam: soft, normal bowel sounds, No tenderness Rectal Exam: not done Back Exam: normal inspection, normal range of motion, No CVA tenderness, No vertebral tenderness Extremity Exam: normal inspection, normal range of motion, pelvis stable Neurologic Exam: alert, oriented x 3, cooperative, deputy sheriff generalist II-XII nml as tested, normal mood/affect, nml cerebellar function, nml station & gait, sensation nml Skin Exam: normal color, warm, dry Lymphatic Exam: No adenopathy SpO2 Interpretation: normal O2 Delivery: Room Air - Course Nursing assessment & vital signs reviewed: Yes EKG Interpreted by Me: RATE (77), Sinus Rhythm, NORMAL AXIS, NORMAL INTERVALS, NORMAL QRS, NORMAL ST-T, Other (There are no acute ischemic changes on today's EKG. There is marked improvement on today's EKG when compared to EKG dated 12/05/2018.) Ordered Tests: Active Orders 24 hr Category Date Time Status EKG-ER Only STAT Care 09/02/20 16:46 Active IV Insertion STAT Care 09/02/20 16:46 Active Pulse Oximetry (ED) STAT Care 09/02/20 16:46 Active BMP Stat Lab 09/02/20 20:09 Completed Medication Summary Discontinued Medications Generic Name Dose Route Start Last Admin Trade Name Freq PRN Reason Stop Dose Admin Potassium Chloride 20 meq in 100 mls @ 50 mls/hr 09/02/20 16:46 09/02/20 17:07 Potassium Chloride 20 Meq In Water 100ml IV 09/02/20 18:45 50 mls/hr STAT ONE Administration Potassium Chloride Confirm 09/02/20 17:03 Potassium Chloride 20 Meq In Water 100ml Administered 09/02/20 17:04 Dose 100 mls @ ud IV .STK-MED ONE Sodium Chloride Confirm 09/02/20 17:21 Sodium Chloride 0.9% 1000 Ml Administered 09/02/20 17:22 Dose 1,000 mls @ ud .ROUTE .STK-MED ONE Potassium Chloride 40 meq 09/02/20 16:46 09/02/20 17:04 Klor Con 10 Meq PO 09/02/20 16:47 40 meq STAT ONE Administration Potassium Chloride Confirm 09/02/20 17:03 Klor Con 10 Meq Administered 09/02/20 17:04 Dose 40 meq PO .STK-MED ONE Lab/Rad Data: Laboratory Result Diagrams 09/02/20 20:09 Laboratory Results 09/02/20 Range/Units 20:09 Sodium 138 (137-145) mmol/L Potassium 3.6 D (3.5-5.1) mmol/L Chloride 102 (98-107) mmol/L Carbon Dioxide 26 (22-30) mmol/L Anion Gap 13.8 (5-15) MEQ/L BUN 13 (9-20) mg/dL Creatinine 0.97 (0.66-1.25) mg/dL Estimated GFR > 60.0 ML/MIN Glucose 90 (74-106) mg/dL Calcium 8.3 L (8.4-10.2) mg/dL - Progress Progress: unchanged, re-examined Counseled pt/family regarding: lab results, diagnosis - Departure Departure Disposition: Home Clinical Impression: Hypokalemia Condition: Stable Critical Care Time: No Referrals: KYLE CHURCHILL MD [Primary Care Provider] - Additional Instructions: Repeat labs on 09/04/2020. Wait in the emergency department waiting room until you get the results of your test. Increase your potassium to 10 mEq twice a day for Saturday and Saturday. Follow-up with Dr. Churchill with his office by phone on 09/05/2020 to make arrangements for further evaluation and management and instructions.
[2020-09-02] MEDS ORDERED: POTASSIUM CHLORIDE 20 mEq IN WATER 100ML 20 MEQ/100 ML BAG IV ONE (16:46)
[2020-09-02] MEDS ORDERED: Klor Con 10 MEQ PO ONE ×2 (16:46→17:03)
[2020-09-02] MEDS ORDERED: POTASSIUM CHLORIDE 20 mEq IN WATER 100ML 100 ML IV ONE (17:03)
[2020-09-02] MEDS ORDERED: Sodium Chloride 0.9% 1000 ML 1,000 ML ONE (17:21)
[2020-09-02 18:48] VITALS: BP 155/100; PULSE 67; O2SAT 98
[2020-09-02 20:22] LABS: ANION GAP 13.8 MEQ/L (5-15); BLOOD UREA NITROGEN 13 mg/dL (9-20); CHLORIDE 102 mmol/L (98-107); Calcium 8.3 mg/dL (8.4-10.2); Carbon Dioxide 26 mmol/L (22-30); Creatinine 1 0.97 mg/dL (0.66-1.25); EST GLOMERULAR FILTRATION RATE > 60.0 ML/MIN; Glucose 90 mg/dL (74-106); SODIUM 138 mmol/L (137-145)
[2020-09-02 20:23] LABS: Potassium 3.6 mmol/L (3.5-5.1)
== END 2020-09-02 20:44 | disposition home or self-care (01) ==
LOC: ED 16:33
DX: E78.6 Lipoprotein deficiency (principal)
CPT/HCPCS: 36000; 36415; 80048; 93005; 94760; 96365; 96366; 99284; J3480; A9270-GY

== ENCOUNTER 2020-12-09 20:20 | Observation (INO) | payer OTHER ==
[2020-12-09 21:27] LABS: MAGNESIUM 2.2 mg/dL (1.6-2.3)
[2020-12-09 21:28] LABS: Potassium 2.7 mmol/L (3.5-5.1)
[2020-12-09] MEDS: POTASSIUM CHLORIDE 20 mEq IN WATER 100ML 20 MEQ/100 ML BAG IV SCH (22:54)
[2020-12-09] MEDS: Coreg 6.25 MG PO SCH (22:55)
[2020-12-09] MEDS: NORVASC 5 MG PO SCH (22:55)
[2020-12-09] MEDS ORDERED: DIOVAN 80 MG PO SCH (23:00)
[2020-12-10] MEDS: POTASSIUM CHLORIDE 20 mEq IN WATER 100ML 20 MEQ/100 ML BAG IV SCH ×3 (00:49→09:15)
[2020-12-10] MEDS ORDERED: Ventolin Hfa MDI IH PRN (08:25)
[2020-12-10] MEDS ORDERED: VENTOLIN COMMON CANISTER IH PRN (08:29)
[2020-12-10] MEDS: NORVASC 5 MG PO SCH (09:16)
[2020-12-10] MEDS: Coreg 6.25 MG PO SCH (09:16)
[2020-12-10] MEDS ORDERED: Klor Con 10 MEQ PO SCH (11:49)
[2020-12-10 12:29] VITALS: BP 138/88; PULSE 89; O2SAT 96
--- NOTE | 2020-12-10 12:39 | PCM.SSS ---
History of Present Illness - Chief Complaint Chief Complaint: low potassium History of Present Illness: is a 50 year old male pt of Dr. Churchill with HTN and hx hypokalemia who was admitted directly after having outpatient labs with potassium of 2.5. He went to Dr. Churchill on 12/09/20 complaining of 4 days of intermittent paresthesias to the R forearm and the R heel. Otherwise he denies weakness or chest pain. Pt did stop taking his potassium, 10mEq po daily, after he stopped lasix about 1 month ago. After 40 mEq K-rider x 1 his potassium was only 2.8. He received another 40 mEq K-rider and awaits his final recheck. Mg level was nl on admission. Pt will be sent home on 20mEq potassium BID - recheck BMP tomorrow. F/u with Dr. Churchill in 1 week. - Review of Systems Neurological: Parasthesia (as in HPI) Psychological: Anxiety (in hospital is anxious), No Depression, No Suicidal Ideations, No Homicidal Ideations Endocrine: Polyuria (every hour at night) All Other Systems: Reviewed and Negative Medications & Allergies Home Medications: Home Medication List Carvedilol 3.125 mg [Coreg 3.125 MG] 6.25 mg PO BID 12/05/18 [History Confirmed 12/09/20] Albuterol Sulfate [Albuterol Sulfate Hfa] 90 mcg OINH Q4-6HPRN PRN 12/09/20 [History Confirmed 12/09/20] Amlodipine Besylate 5 mg [Norvasc 5 mg] 5 mg PO BID 12/09/20 [History Confirmed 12/09/20] Valsartan 320 mg PO HS 12/09/20 [History Confirmed 12/09/20] Potassium Chloride 10 Meq Tab* [Klor Con 10 MEQ] 20 meq PO BID #60 tab 12/10/20 [Rx] Allergies/Adverse Reactions: Allergies Allergy/AdvReac Type Severity Reaction Status Date / Time No Known Drug Allergies Allergy Verified 12/05/18 21:33 - Past Medical History Past Medical History: Yes Neurological History: No Pertinent History ENT History: No Pertinent History Cardiac History: High Cholesterol, Hypertension Respiratory History: No Pertinent History, Sleep Apnea Endocrine Medical History: No Pertinent History Musculoskelatal History: Arthritis, Degenerative Disk Disease GI Medical History: Hernia History: No Pertinent History Pyscho-Social History: Anxiety Male Reproductive Disorders: No Pertinent History Comment: low potassium 4 mos ago - Past Surgical History Past Surgical History: No Neuro Surgical History: No Pertinent History Cardiac History: No Pertinent History Respiratory Surgery: No Pertinent History GI Surgical History: No Pertinent History Genitourinary Surgical Hx: No Pertinent History Musculskeletal Surgical Hx: No Pertinent History Male Surgical History: Vasectomy Other Surgical History: vasectomy - Social History Smoking Status: Former smoker Exposure to second hand smoke: No Alcohol: Occasionally Drug Use: none - Physical Exam Vital Signs: Vital Signs - 24 hr Temp Pulse Resp BP BP Pulse Ox 12/10/20 12:00 98.4 F 89 18 138/88 96 12/10/20 08:00 18 12/10/20 07:22 97.7 F 72 20 156/96 97 12/10/20 04:00 16 12/10/20 02:49 98.1 F 77 18 141/87 98 12/10/20 00:00 18 12/09/20 23:33 97.5 F 73 18 173/96 12/09/20 22:31 71 16 96 12/09/20 21:32 97.8 F 70 18 176/103 96 General Appearance: no apparent distress, alert, obese Neurologic Exam: oriented x 3, cooperative Eye Exam: eyes nml inspection Ears, Nose, Throat Exam: moist mucous membranes Neck Exam: normal inspection, non-tender, supple, No lymphadenopathy Respiratory Exam: normal breath sounds, lungs clear, No crackles/rales, No rhonchi, No wheezing Cardiovascular Exam: regular rate/rhythm, normal heart sounds, No murmur Gastrointestinal/Abdomen Exam: soft, normal bowel sounds, No tenderness, No distention, No mass, No guarding, No rebound Extremity Exam: normal inspection, No pedal edema, No swelling Skin Exam: normal color, warm, dry, No rash Results - Labs Lab/Micro Results: Lab Results-Last 24 Hours 12/09/20 12/09/20 12/10/20 Range/Units 20:55 21:15 05:20 Potassium 2.7 L* 2.8 L* (3.5-5.1) mmol/L Magnesium 2.2 (1.6-2.3) mg/dL SARS-CoV-2 (PCR) NEGATIVE (NEGATIVE) Assessment/Plan (1) Hypokalemia Current Visit: No Status: Chronic Assessment & Plan: Has had this issue previously - discussed possible need for renal w/u but he will f/u with Dr. Churchill about that. home on K 20 mEq po BID. Pt to get BMP tomorrow - discussed risk of overshooting the potassium and causing hyperkalemia. Code(s): E87.6 - HYPOKALEMIA (2) Hypertension Current Visit: Yes Status: Acute Assessment & Plan: A little high here, but will not make changes in meds, likely transient increase d/t hospital stay with some anxiety. Code(s): I10 - ESSENTIAL (PRIMARY) HYPERTENSION (3) Polyuria Current Visit: Yes Status: Chronic Assessment & Plan: Will need to f/u with DR. Churchill. Code(s): R35.89 - OTHER POLYURIA Hospital Summary - Hospital Course Hospital Course: Pt is 50 yo male with HTN and hx hypokalemia, admitted for K+ of 2.5 (nl Mg). After 1 40mEq k-rider his K was 2.8, so another was given. Final K+ is pending - if near normal, will d/c to home on 20 mEq K BID - recheck BMP tomorrow and f/u with Dr. Churchill in 1 week. - Vitals & Intake/Output Vital Signs: Vital Signs Temperature 98.4 F 12/10/20 12:00 Pulse Rate 89 12/10/20 12:00 Respiratory Rate 18 12/10/20 12:00 Blood Pressure 138/88 12/10/20 12:00 O2 Sat by Pulse Oximetry 96 12/10/20 12:00 Intake & Output: Intake & Output 12/08/20 12/09/20 12/10/20 12/11/20 11:59 11:59 11:59 11:59 Intake Total 780 Balance 780 Weight 123.6 kg - Lab Result Diagrams: 12/10/20 05:20 Lab Results-Last 24 Hrs: Lab Results-Last 24 Hours 12/09/20 12/09/20 12/10/20 Range/Units 20:55 21:15 05:20 Potassium 2.7 L* 2.8 L* (3.5-5.1) mmol/L Magnesium 2.2 (1.6-2.3) mg/dL SARS-CoV-2 (PCR) NEGATIVE (NEGATIVE) - Procedures and Test Procedures and Tests throughout Hospitalization: Therapy Orders & Screens 12/09/20 20:58 EKG STAT Comment: 12/09/20 22:31 Respiratory Therapy Assessment DAILY Comment: Diagnosis: low potassium - Discharge Disposition: Home, Self-Care Condition: Good Prescriptions: New Potassium Chloride 10 Meq Tab* [Klor Con 10 MEQ] 20 meq PO BID #60 tab Continue Carvedilol 3.125 mg [Coreg 3.125 MG] 6.25 mg PO BID Amlodipine Besylate 5 mg [Norvasc 5 mg] 5 mg PO BID Valsartan 320 mg PO HS Albuterol Sulfate [Albuterol Sulfate Hfa] 90 mcg OINH Q4-6HPRN PRN PRN Reason: Shortness Of Breath Follow up with: KYLE CHURCHILL MD [Primary Care Provider] - 12/20/20 10:30 am
== END 2020-12-10 14:20 | disposition home or self-care (01) ==
LOC: MED SURG 20:37
PROVIDERS: ADMIT Family Medicine; ATTEND Family Medicine
DX: E87.6 Hypokalemia (principal); F41.9 Anxiety disorder, unspecified; I10 Essential (primary) hypertension; E78.00 Pure hypercholesterolemia, unspecified; R35.89 Other polyuria; Z79.899 Other long term (current) drug therapy; Z20.822 Contact with and (suspected) exposure to COVID-19
CPT/HCPCS: 36415; 83735; 84132; 93005; 93268; G0378; U0003; J3480; A9270-GY